=== PATIENT | female | born 1995 | race Caucasian/White ===

== ENCOUNTER 2023-08-09 18:46 | Emergency (ER) | payer OTHER ==
[~2023-08-09] VITALS: Ht 152.4 cm; Wt 86.4 kg
[2023-08-09 18:54] VITALS: TEMP 98.7
[2023-08-09 21:43] VITALS: BP 118/72; PULSE 92
== END 2023-08-09 22:09 | disposition home or self-care (01) ==
LOC: COL.ER 18:46
DX: G44.309 Post-traumatic headache, unspecified, not intractable (principal); F07.81 Postconcussional syndrome; Z91.040 Latex allergy status
CPT/HCPCS: J1200; J1885; J2765; J7030